=== PATIENT | female | born 1985 | race Caucasian/White ===

== ENCOUNTER 2019-08-19 13:35 | Emergency (ER) | payer MEDICAID, SELFPAY ==
[2019-08-19 14:07] VITALS: BP 103/65; PULSE 95; RESP 16; TEMP 36.9; O2SAT 99; BMI 30.6
--- NOTE | 2019-08-19 17:08 | ED_ITS ---
HPI - Dental/Oral General: Chief complaint: Dental/Oral Stated complaint: dental abscess Time Seen by Provider: 08/19/19 17:05 History of Present Illness: HPI Narrative: abcess in mouth draining since last night has dental appointment scheduled on Wednesday MD Complaint: tooth pain Teeth map: 1. Onset (ago): day(s) Duration: constant Severity: moderate Severity scale (1-10): 5 Relieving factors: nothing Context: history of dental caries Associated symptoms: Denies fever(s) Review of Systems Const: Denies: fever, chills or body aches ENMT: Reports: other (Dental abscess is draining currently) Psych: Denies: anxiety or depression PFSH ED PFSH: Social History Smoking and tobacco status: never smoked Physical Exam Const: COMMON NORMALS: no apparent distress HENMT: TEETH & GINGIVA IMAGES: 1. Abscess drainage outer gum #3 molar face not swollen no tenderness Psych: COMMON NORMALS: mental status grossly normal Course Vital Signs: Vital signs: Vital Signs Temperature 98.4 F 08/19/19 14:07 Pulse Rate 95 08/19/19 14:07 Respiratory Rate 16 08/19/19 14:07 Blood Pressure 103/65 08/19/19 14:07 Pulse Oximetry 99 08/19/19 14:07 Discharge Plan Discharge Condition: Stable Coding Level of Care Code ED Program Services Assistant for Elroy Robbins
[2019-08-19 17:25] VITALS: PULSE 78; RESP 14; TEMP 37.1; O2SAT 97
== END 2019-08-19 17:26 | disposition home or self-care (01) ==
PROVIDERS: Emergency Provider Nurse Practitioner Family
DX: K04.7 Periapical abscess without sinus (principal)
CPT/HCPCS: 12345; 99281